=== PATIENT | female | born 1990 | race Native Hawaiian/Other Pacific Islander ===

== ENCOUNTER 2019-07-13 15:59 | Outpatient (CLI) | payer OTHER | END 2019-07-13 19:16 | disposition home or self-care (01) | LOC: RAD 15:59 | DX: M54.5 Low back pain (principal); M25.551 Pain in right hip ==

== ENCOUNTER 2019-07-19 12:17 | Outpatient (CLI) | payer OTHER | END 2019-07-19 19:27 | disposition home or self-care (01) | LOC: RAD 12:17 | DX: M25.50 Pain in unspecified joint (principal); M54.5 Low back pain; M54.6 Pain in thoracic spine ==

== ENCOUNTER 2019-10-31 15:28 | Outpatient (CLI) | payer OTHER | END 2019-10-31 23:56 | disposition home or self-care (01) | LOC: RAD 15:28 | DX: M54.2 Cervicalgia (principal); M54.6 Pain in thoracic spine ==